=== PATIENT | female | born 1955 | race Two or more races ===

== ENCOUNTER 2017-08-30 14:15 | Inpatient (IN) | payer OTHER ==
[~2017-08-30] VITALS: Ht 167.6 cm; Wt 69.7 kg
[2017-08-30] MEDS ORDERED: MORPHINE SULFATE 4 MG/ML SYR/VIAL ONE ×2 (14:30→14:43)
[2017-08-30] MEDS ORDERED: HEPARIN SODIUM (PORCINE) 5000 UNITS/ML 1ML VIAL IV ONE (14:45)
[2017-08-30] MEDS ORDERED: MORPHINE SULFATE 8mg/ml INJ SDV IV ONE ×2 (14:45)
[2017-08-30] MEDS ORDERED: MIDAZOLAM HCL 1MG/1ML-2 ML VIAL ONE (14:50)
[2017-08-30] MEDS ORDERED: ANGIOMAX 250 MG VIAL IV ONE ×2 (14:50→15:46)
[2017-08-30] MEDS ORDERED: fentaNYL CITRATE 100 MCG/2 ML VL ONE (14:50)
[2017-08-30] MEDS ORDERED: SODIUM CHL 0.9% 50 ML ONE ×2 (14:50→15:46)
[2017-08-30] MEDS ORDERED: EPTIFIBATIDE INJ (2MG/ML) 10ML VIAL IV ONE (14:51)
[2017-08-30] MEDS ORDERED: IODIXANOL 320MG/ML 100ML BTL IV ONE ×3 (14:53→16:27)
[2017-08-30] MEDS ORDERED: LIDOCAINE HCL 2 %PF INJ 10ML AMP IJ ONE (14:53)
[2017-08-30 15:05] LABS: Basophils # (auto) 0.1 uL; Basophils % (auto) 0.6 % (0.0-2.0); Eosinophils # (auto) 0.1 uL; Eosinophils % (auto) 0.7 % (0.0-7.0); Hematocrit 41.1 % (36.0-46.0); Hemoglobin 13.6 g/dL (12.2-16.2); Lymphocytes # (auto) 3.2 uL; Lymphocytes % (auto) 29.6 % (10.0-50.0); Mean Corpuscular Hemoglobin 30.8 pg (28.0-32.0); Mean Corpuscular Hgb Conc. 33.1 g/dL (32.0-36.0); Mean Corpuscular Volume 92.9 fL (80.0-100.0); Monocytes # (auto) 0.6 uL; Neutrophils # (auto) 6.8 uL; Neutrophils % (auto) 63.1 % (37.0-80.0); Nucleated Red Blood Cells % 0.1 %; Platelet Count (auto) 259 10^3/uL (140-450); Red Blood Cells 4.43 10^6/uL (4.0-5.20); Red Cell Distribution Width 13.4 % (11.8-14.3); White Blood Cell 10.7 10^3/uL (4.4-10.8)
[2017-08-30] MEDS ORDERED: EPINEPHrine HCL 1 MG/10 ML SYRG ONE (15:15)
[2017-08-30 15:25] LABS: Alanine Aminotransferase 43 U/L (13-56); Albumin 3.4 g/dL (3.4-5.0); Alkaline Phosphatase 83 U/L (45-117); Anion Gap 11 (5-15); Aspartate Aminotransferase 22 U/L (15-37); BUN/Creatinine Ratio 17.1; Bilirubin, Total 0.5 mg/dL (0.2-1.0); Blood Urea Nitrogen 13 mg/dL (7-18); Calcium 7.9 mg/dL (8.5-10.1); Carbon Dioxide 20 mmol/L (21-32); Chloride 112 mmol/L (98-107); GFR African American 99 mL/min; GFR Non-African American 81 mL/min; Glucose 132 mg/dL (74-106); Magnesium 2.4 mg/dL (1.6-2.6); Potassium 3.1 mmol/L (3.5-5.1); Sodium 143 mmol/L (136-145)
[2017-08-30] MEDS ORDERED: CLOPIDOGREL 300 MG TAB ONE (16:33)
[2017-08-30] MEDS ORDERED: ZOLPIDEM TARTRATE 5 MG TAB PO PRN ×2 (16:45→17:15)
[2017-08-30] MEDS ORDERED: LORazepam 0.5 MG TAB PO PRN ×2 (16:45→17:15)
[2017-08-30] MEDS ORDERED: SODIUM BICARBONATE 50ML VIAL 150 ML in D5W 5% 1,000 ML IV ONE (16:45)
[2017-08-30] MEDS ORDERED: HYDROcodone-ACET 5/325MG TAB PO PRN (16:45)
[2017-08-30] MEDS ORDERED: ACETAMINOPHEN 500 MG TAB PO PRN (16:45)
[2017-08-30] MEDS ORDERED: ONDANSETRON HCL 4 MG/2 ML VIAL ONE (16:56)
[2017-08-30] MEDS ORDERED: NITROGLYCERIN 0.4 MG SL TAB SL PRN (17:15)
[2017-08-30] MEDS ORDERED: MORPHINE SULFATE 8mg/ml INJ SDV IV PRN (17:15)
[2017-08-30] MEDS: METOPROLOL SUCCINATE XL 50 MG TAB PO SCH (17:18)
[2017-08-30] MEDS: LISINOPRIL 5 MG TAB PO SCH (17:18)
[2017-08-30 18:36] LABS: Basophils # (auto) 0 uL; Basophils % (auto) 0.3 % (0.0-2.0); Eosinophils # (auto) 0 uL; Eosinophils % (auto) 0.1 % (0.0-7.0); Hematocrit 42.8 % (36.0-46.0); Hemoglobin 14.1 g/dL (12.2-16.2); Lymphocytes % (auto) 7.8 % (10.0-50.0); Mean Corpuscular Volume 90.9 fL (80.0-100.0); Monocytes # (auto) 0.4 uL; Monocytes % (auto) 3.1 % (0.0-12.0); Neutrophils # (auto) 11.5 uL; Neutrophils % (auto) 88.7 % (37.0-80.0); Platelet Count (auto) 227 10^3/uL (140-450); Red Blood Cells 4.71 10^6/uL (4.0-5.20); Red Cell Distribution Width 13.2 % (11.8-14.3); White Blood Cell 12.9 10^3/uL (4.4-10.8)
[2017-08-30 18:56] LABS: Cholesterol 282 mg/dL (< 200); HDL Cholesterol 45 mg/dL (40-59); LDL Cholesterol 210 mg/dL (< 100); Triglycerides 210 mg/dL (< 150)
[2017-08-30 19:00] VITALS: BP 122/73
[2017-08-30] MEDS: MORPHINE SULFATE 8mg/ml INJ SDV IV PRN (19:07)
[2017-08-30 20:00] VITALS: BP 127/77
[2017-08-30] MEDS: ONDANSETRON HCL 4 MG/2 ML VIAL IV PRN (20:42)
[2017-08-30 21:00] VITALS: BP 119/75
[2017-08-30 22:00] VITALS: BP 125/83
[2017-08-30] MEDS: ATORVASTATIN 20 MG TAB PO SCH (22:02)
[2017-08-30 23:00] VITALS: BP 100/65
[2017-08-30 23:30] LABS: Calcium 7.7 mg/dL (8.5-10.1); Magnesium 2.2 mg/dL (1.6-2.6)
[2017-08-30 23:32] LABS: Bilirubin, Total 0.6 mg/dL (0.2-1.0); Total Protein 6.3 g/dL (6.4-8.2)
[2017-08-31] VITALS (25 sets, daily range): BP systolic 103–136; BP diastolic 45–83
[2017-08-31] MEDS: NITROGLYCERIN 0.4 MG SL TAB SL PRN (04:35)
[2017-08-31] MEDS: MORPHINE SULFATE 8mg/ml INJ SDV IV PRN (04:40)
[2017-08-31] MEDS: ONDANSETRON HCL 4 MG/2 ML VIAL IV PRN ×2 (04:40→15:38)
[2017-08-31 05:11] LABS: INR 0.94 (0.9-1.15); Partial Thromboplastin Time 24.8 sec (22.64-33.71); Prothrombin Time 10.2 sec (9.37-12.3)
[2017-08-31] MEDS ORDERED: ANGIOMAX 250 MG VIAL IV ONE (05:11)
[2017-08-31 05:12] LABS: Albumin 3.2 g/dL (3.4-5.0); BUN/Creatinine Ratio 15.9; Bilirubin, Total 0.8 mg/dL (0.2-1.0); Calcium 8.2 mg/dL (8.5-10.1); Potassium 4.2 mmol/L (3.5-5.1); Total Protein 6.5 g/dL (6.4-8.2)
[2017-08-31] MEDS ORDERED: SODIUM CHL 0.9% 50 ML ONE (05:12)
[2017-08-31] MEDS ORDERED: fentaNYL CITRATE 100 MCG/2 ML VL ONE (05:12)
[2017-08-31] MEDS ORDERED: MIDAZOLAM HCL 1MG/1ML-2 ML VIAL ONE (05:12)
[2017-08-31] MEDS ORDERED: LIDOCAINE HCL 2 %PF INJ 10ML AMP IJ ONE (05:12)
[2017-08-31] MEDS ORDERED: IODIXANOL 320MG/ML 100ML BTL IV ONE (05:13)
[2017-08-31] MEDS ORDERED: EPTIFIBATIDE INJ (2MG/ML) 10ML VIAL IV ONE (05:13)
[2017-08-31] MEDS ORDERED: EPTIFIBATIDE DRIP(0.75MG/ML) 100 ML IV ONE ×2 (05:37→13:10)
[2017-08-31] MEDS ORDERED: ASPirin 81 mg TAB PO SCH (10:00)
[2017-08-31] MEDS ORDERED: CLOPIDOGREL BISULFATE 75 MG TAB PO SCH (10:00)
[2017-08-31] MEDS ORDERED: ASPirin-EC 81 mg tab PO SCH (10:00)
[2017-08-31] MEDS: METOPROLOL SUCCINATE XL 50 MG TAB PO SCH (10:05)
[2017-08-31] MEDS: CLOPIDOGREL BISULFATE 75 MG TAB PO SCH (10:05)
[2017-08-31] MEDS: ASPirin-EC 81 mg tab PO SCH (10:05)
[2017-08-31] MEDS: LISINOPRIL 5 MG TAB PO SCH (10:06)
[2017-08-31 15:47] LABS: Urine Bacteria NONE SEEN /hpf (None Seen); Urine Blood 2+ /uL (Negative); Urine Mucus FEW (None Seen); Urine WBC 2 /hpf (0 - 5)
[2017-08-31 15:52] LABS: Urine Specific Gravity > 1.050 (1.001-1.035)
[2017-08-31] MEDS: SODIUM CHLORIDE 0.9% 1,000 ML IV SCH (20:00)
[2017-08-31] MEDS: PANTOPRAZOLE 40 MG TAB PO SCH (22:20)
[2017-08-31] MEDS: ATORVASTATIN 20 MG TAB PO SCH (22:20)
[2017-09-01] VITALS (58 sets, daily range): BP systolic 96–140; BP diastolic 49–83
[2017-09-01 03:44] LABS: Basophils # (auto) 0.1 uL; Basophils % (auto) 0.3 % (0.0-2.0); Eosinophils # (auto) 0 uL; Hematocrit 40.8 % (36.0-46.0); Hemoglobin 13.7 g/dL (12.2-16.2); Lymphocytes # (auto) 1.1 uL; Lymphocytes % (auto) 6.9 % (10.0-50.0); Mean Corpuscular Hemoglobin 30.1 pg (28.0-32.0); Mean Corpuscular Hgb Conc. 33.6 g/dL (32.0-36.0); Mean Corpuscular Volume 89.7 fL (80.0-100.0); Monocytes # (auto) 1.4 uL; Monocytes % (auto) 8.7 % (0.0-12.0); Neutrophils # (auto) 13.8 uL; Neutrophils % (auto) 84.1 % (37.0-80.0); Platelet Count (auto) 219 10^3/uL (140-450); Red Blood Cells 4.55 10^6/uL (4.0-5.20); Red Cell Distribution Width 13.1 % (11.8-14.3); White Blood Cell 16.4 10^3/uL (4.4-10.8)
[2017-09-01 04:03] LABS: Albumin 2.5 g/dL (3.4-5.0); Calcium 7.9 mg/dL (8.5-10.1); Potassium 3.9 mmol/L (3.5-5.1)
[2017-09-01 04:05] LABS: BUN/Creatinine Ratio 15.9
[2017-09-01 04:07] LABS: Cholesterol 227 mg/dL (< 200); HDL Cholesterol 48 mg/dL (40-59); LDL Cholesterol 150 mg/dL (< 100); Triglycerides 147 mg/dL (< 150)
[2017-09-01 04:08] LABS: Bilirubin, Total 1.8 mg/dL (0.2-1.0); Total Protein 5.9 g/dL (6.4-8.2)
[2017-09-01] MEDS: SODIUM CHLORIDE 0.9% 1,000 ML IV SCH ×2 (06:27→10:29)
[2017-09-01] MEDS: CLOPIDOGREL BISULFATE 75 MG TAB PO SCH (09:57)
[2017-09-01] MEDS: LISINOPRIL 5 MG TAB PO SCH (09:57)
[2017-09-01] MEDS: ASPirin-EC 81 mg tab PO SCH (09:57)
[2017-09-01] MEDS: METOPROLOL SUCCINATE XL 50 MG TAB PO SCH (09:58)
[2017-09-01] MEDS: PANTOPRAZOLE 40 MG TAB PO SCH (09:58)
[2017-09-01] MEDS ORDERED: FUROSEMIDE 40 MG/4 ML VIAL ONE (10:20)
[2017-09-01] MEDS ORDERED: NITROGLYCERIN 0.4 MG SL TAB SL ONE (10:21)
[2017-09-01] MEDS ORDERED: LISINOPRIL 5 MG TAB ONE (10:21)
[2017-09-01] MEDS: NITROGLYCERIN 0.4 MG SL TAB SL PRN (10:28)
[2017-09-01] MEDS: FUROSEMIDE 40 MG/4 ML VIAL IV SCH (18:00)
[2017-09-02] VITALS (42 sets, daily range): BP systolic 77–109; BP diastolic 27–81
[2017-09-02] MEDS: SODIUM CHLORIDE 0.9% 1,000 ML IV SCH (01:58)
[2017-09-02 03:44] LABS: Basophils # (auto) 0.1 uL; Basophils % (auto) 0.5 % (0.0-2.0); Eosinophils # (auto) 0 uL; Eosinophils % (auto) 0.2 % (0.0-7.0); Hematocrit 37.5 % (36.0-46.0); Hemoglobin 12.4 g/dL (12.2-16.2); Lymphocytes # (auto) 1.5 uL; Lymphocytes % (auto) 12.2 % (10.0-50.0); Mean Corpuscular Hemoglobin 29.7 pg (28.0-32.0); Mean Corpuscular Hgb Conc. 33.1 g/dL (32.0-36.0); Mean Corpuscular Volume 89.8 fL (80.0-100.0); Monocytes # (auto) 1.3 uL; Monocytes % (auto) 10.3 % (0.0-12.0); Neutrophils # (auto) 9.4 uL; Neutrophils % (auto) 76.8 % (37.0-80.0); Platelet Count (auto) 181 10^3/uL (140-450); Red Blood Cells 4.18 10^6/uL (4.0-5.20); Red Cell Distribution Width 13.1 % (11.8-14.3); White Blood Cell 12.2 10^3/uL (4.4-10.8)
[2017-09-02 04:05] LABS: Albumin 2.4 g/dL (3.4-5.0); Potassium 3.5 mmol/L (3.5-5.1)
[2017-09-02 04:07] LABS: BUN/Creatinine Ratio 16.7
[2017-09-02 04:09] LABS: Bilirubin, Total 1.4 mg/dL (0.2-1.0)
[2017-09-02] MEDS: FUROSEMIDE 40 MG/4 ML VIAL IV SCH ×2 (06:00→18:20)
[2017-09-02] MEDS ORDERED: FUROSEMIDE 20 MG/2 ML VIAL IV SCH (10:00)
[2017-09-02] MEDS: PANTOPRAZOLE 40 MG TAB PO SCH ×3 (10:30→22:00)
[2017-09-02] MEDS: ASPirin-EC 81 mg tab PO SCH (10:30)
[2017-09-02] MEDS: POTASSIUM CHL 20 Meq TABLET PO SCH ×3 (10:30→22:00)
[2017-09-02] MEDS: CLOPIDOGREL BISULFATE 75 MG TAB PO SCH (10:30)
[2017-09-02] MEDS ORDERED: FUROSEMIDE 40 MG/4 ML VIAL IV ONE (10:30)
[2017-09-02] MEDS: LISINOPRIL 5 MG TAB PO SCH ×3 (10:48→22:00)
[2017-09-02] MEDS: METOPROLOL SUCCINATE XL 50 MG TAB PO SCH (13:12)
[2017-09-02] MEDS: ATORVASTATIN 20 MG TAB PO SCH ×2 (22:00)
[2017-09-03] VITALS (24 sets, daily range): BP systolic 79–132; BP diastolic 47–86
[2017-09-03] MEDS ORDERED: DIGOXIN (250MCG/ML) 2 ML AMPULE IV ONE (01:00)
[2017-09-03] MEDS ORDERED: DILTIAZEM HCL 25 MG/5 ML VIAL IV ONE (01:00)
[2017-09-03] MEDS ORDERED: DIGOXIN (250MCG/ML) 2 ML AMPULE ONE (01:04)
[2017-09-03 02:10] LABS: BUN/Creatinine Ratio 20.5; Calcium 8.2 mg/dL (8.5-10.1); Magnesium 2.2 mg/dL (1.6-2.6); Potassium 3.5 mmol/L (3.5-5.1)
[2017-09-03] MEDS: FUROSEMIDE 40 MG/4 ML VIAL IV SCH (06:00)
[2017-09-03 06:17] LABS: Potassium 3.7 mmol/L (3.5-5.1)
[2017-09-03 06:23] LABS: BUN/Creatinine Ratio 21.5; Calcium 8.3 mg/dL (8.5-10.1); Magnesium 2.3 mg/dL (1.6-2.6)
[2017-09-03] MEDS ORDERED: MAGNESIUM SULFATE 1GM/100ML 100 ML IV ONE (06:54)
[2017-09-03] MEDS: MAGNESIUM SULFATE 1GM/100ML 100 ML IV SCH ×2 (07:00→08:49)
[2017-09-03] MEDS: POTASSIUM CHL 20 Meq TABLET PO SCH ×2 (08:47→21:46)
[2017-09-03] MEDS: LISINOPRIL 5 MG TAB PO SCH (08:47)
[2017-09-03] MEDS: CLOPIDOGREL BISULFATE 75 MG TAB PO SCH (08:48)
[2017-09-03] MEDS: ASPirin-EC 81 mg tab PO SCH (08:48)
[2017-09-03] MEDS: AMIODARONE HCL 200 MG TAB PO SCH ×2 (08:48→21:45)
[2017-09-03] MEDS ORDERED: CARVEDILOL 3.125 MG TAB PO ONE (11:30)
[2017-09-03] MEDS ORDERED: MAGNESIUM OXIDE 400 MG TAB PO ONE (11:30)
[2017-09-03] MEDS: PANTOPRAZOLE 40 MG TAB PO SCH ×2 (12:36→21:46)
[2017-09-03] MEDS: CARVEDILOL 3.125 MG TAB PO SCH (21:45)
[2017-09-03] MEDS: ATORVASTATIN 20 MG TAB PO SCH (21:46)
[2017-09-03] MEDS: MAGNESIUM OXIDE 400 MG TAB PO SCH (22:01)
[2017-09-04 05:00] VITALS: BP 105/63
[2017-09-04 06:02] LABS: Basophils # (auto) 0 uL; Basophils % (auto) 0.3 % (0.0-2.0); Eosinophils # (auto) 0.1 uL; Eosinophils % (auto) 1.8 % (0.0-7.0); Hemoglobin 12.5 g/dL (12.2-16.2); Lymphocytes # (auto) 1.2 uL; Lymphocytes % (auto) 14.5 % (10.0-50.0); Mean Corpuscular Hemoglobin 30.4 pg (28.0-32.0); Mean Corpuscular Hgb Conc. 33.8 g/dL (32.0-36.0); Mean Corpuscular Volume 90.1 fL (80.0-100.0); Monocytes # (auto) 0.7 uL; Monocytes % (auto) 8.5 % (0.0-12.0); Neutrophils # (auto) 6.3 uL; Neutrophils % (auto) 74.9 % (37.0-80.0); Platelet Count (auto) 228 10^3/uL (140-450); Red Blood Cells 4.11 10^6/uL (4.0-5.20); Red Cell Distribution Width 12.7 % (11.8-14.3); White Blood Cell 8.3 10^3/uL (4.4-10.8)
[2017-09-04 06:33] LABS: Albumin 2.6 g/dL (3.4-5.0); BUN/Creatinine Ratio 16.4; Calcium 8.3 mg/dL (8.5-10.1); Potassium 4.4 mmol/L (3.5-5.1); Total Protein 6.6 g/dL (6.4-8.2)
[2017-09-04 09:00] VITALS: BP 106/72
[2017-09-04] MEDS: POTASSIUM CHL 20 Meq TABLET PO SCH ×2 (09:47→21:54)
[2017-09-04] MEDS: ASPirin-EC 81 mg tab PO SCH (09:48)
[2017-09-04] MEDS: CLOPIDOGREL BISULFATE 75 MG TAB PO SCH (09:48)
[2017-09-04] MEDS: AMIODARONE HCL 200 MG TAB PO SCH ×2 (09:49→21:53)
[2017-09-04] MEDS: CARVEDILOL 3.125 MG TAB PO SCH ×2 (09:49→21:54)
[2017-09-04] MEDS: MAGNESIUM OXIDE 400 MG TAB PO SCH ×2 (09:50→21:55)
[2017-09-04] MEDS: PANTOPRAZOLE 40 MG TAB PO SCH ×2 (09:50→21:55)
[2017-09-04 13:00] VITALS: BP 91/61
[2017-09-04 18:24] VITALS: BP 127/75
[2017-09-04] MEDS: ATORVASTATIN 20 MG TAB PO SCH (21:54)
[2017-09-04] MEDS: ENALAPRIL MALEATE 2.5 MG TAB PO SCH (21:57)
[2017-09-04 22:00] VITALS: BP 109/71
[2017-09-05 05:00] VITALS: BP 112/66
[2017-09-05 05:59] LABS: Basophils # (auto) 0.1 uL; Basophils % (auto) 1.3 % (0.0-2.0); Eosinophils # (auto) 0.2 uL; Eosinophils % (auto) 1.9 % (0.0-7.0); Hematocrit 39.7 % (36.0-46.0); Hemoglobin 13.5 g/dL (12.2-16.2); Lymphocytes # (auto) 1.3 uL; Lymphocytes % (auto) 15.1 % (10.0-50.0); Mean Corpuscular Hemoglobin 30.5 pg (28.0-32.0); Mean Corpuscular Volume 89.6 fL (80.0-100.0); Monocytes # (auto) 0.9 uL; Monocytes % (auto) 10.5 % (0.0-12.0); Neutrophils % (auto) 71.2 % (37.0-80.0); Nucleated Red Blood Cells % 0.1 %; Platelet Count (auto) 247 10^3/uL (140-450); Red Blood Cells 4.44 10^6/uL (4.0-5.20); Red Cell Distribution Width 12.7 % (11.8-14.3); White Blood Cell 8.4 10^3/uL (4.4-10.8)
[2017-09-05 06:12] LABS: Albumin 2.7 g/dL (3.4-5.0); BUN/Creatinine Ratio 13.4; Calcium 8.6 mg/dL (8.5-10.1); Potassium 4.3 mmol/L (3.5-5.1)
[2017-09-05 06:16] LABS: Bilirubin, Total 1.4 mg/dL (0.2-1.0); Total Protein 7.4 g/dL (6.4-8.2)
[2017-09-05] MEDS: POTASSIUM CHL 20 Meq TABLET PO SCH (09:37)
[2017-09-05] MEDS: ASPirin-EC 81 mg tab PO SCH (09:37)
[2017-09-05] MEDS: PANTOPRAZOLE 40 MG TAB PO SCH (09:37)
[2017-09-05] MEDS: MAGNESIUM OXIDE 400 MG TAB PO SCH (09:37)
[2017-09-05] MEDS: CLOPIDOGREL BISULFATE 75 MG TAB PO SCH (09:37)
[2017-09-05] MEDS: CARVEDILOL 3.125 MG TAB PO SCH (09:38)
[2017-09-05] MEDS: AMIODARONE HCL 200 MG TAB PO SCH (09:38)
[2017-09-05] MEDS: ENALAPRIL MALEATE 2.5 MG TAB PO SCH (09:38)
[2017-09-05 15:01] VITALS: BP 114/69
== END 2017-09-05 16:56 | disposition home or self-care (01) | DRG 246 ==
LOC: EDSEX 14:15 → EDBD 14:15 → ER 14:15 → CATH 14:16 → ICU WEST 14:17 → EDBD 14:17 → TELE-WESTW 09-03 14:20
PROVIDERS: ADMIT Internal Medicine; ATTEND Internal Medicine Pulmonary Disease
PROC: 02C03ZZ Extirpation of Matter from Coronary Artery, One Artery, Percutaneous Approach (ICD-10-PCS; principal; 2017-08-30)
PROC: 027037Z Dilation of Coronary Artery, One Artery with Four or More Drug-eluting Intraluminal Devices, Percutaneous Approach (ICD-10-PCS; 2017-08-30)
PROC: 4A023N7 Measurement of Cardiac Sampling and Pressure, Left Heart, Percutaneous Approach (ICD-10-PCS; 2017-08-30)
PROC: B2111ZZ Fluoroscopy of Multiple Coronary Arteries using Low Osmolar Contrast (ICD-10-PCS; 2017-08-30)
PROC: B2151ZZ Fluoroscopy of Left Heart using Low Osmolar Contrast (ICD-10-PCS; 2017-08-30)
PROC: 027036Z Dilation of Coronary Artery, One Artery with Three Drug-eluting Intraluminal Devices, Percutaneous Approach (ICD-10-PCS; 2017-08-31)
PROC: 4A023N7 Measurement of Cardiac Sampling and Pressure, Left Heart, Percutaneous Approach (ICD-10-PCS; 2017-08-31)
PROC: B2101ZZ Fluoroscopy of Single Coronary Artery using Low Osmolar Contrast (ICD-10-PCS; 2017-08-31)
PROC: 3E073PZ Introduction of Platelet Inhibitor into Coronary Artery, Percutaneous Approach (ICD-10-PCS; 2017-08-31)
DX: I21.3 ST elevation (STEMI) myocardial infarction of unspecified site (principal); E44.0 Moderate protein-calorie malnutrition; I95.9 Hypotension, unspecified; I11.0 Hypertensive heart disease with heart failure; I50.9 Heart failure, unspecified; T82.867A Thrombosis due to cardiac prosthetic devices, implants and grafts, initial encounter; E87.6 Hypokalemia; I25.5 Ischemic cardiomyopathy; I48.91 Unspecified atrial fibrillation; E74.39 Other disorders of intestinal carbohydrate absorption; Y83.1 Surgical operation with implant of artificial internal device as the cause of abnormal reaction of the patient, or of later complication, without mention of misadventure at the time of the procedure; E78.5 Hyperlipidemia, unspecified; I25.10 Atherosclerotic heart disease of native coronary artery without angina pectoris; Z87.891 Personal history of nicotine dependence; Z90.49 Acquired absence of other specified parts of digestive tract; Z68.24 Body mass index [BMI] 24.0-24.9, adult; Z82.49 Family history of ischemic heart disease and other diseases of the circulatory system; Y92.89 Other specified places as the place of occurrence of the external cause
CPT/HCPCS: 36415; 71045; 80048; 80053; 80061; 81001; 83036; 83735; 83880; 84443; 84484; 85025; 85610; 85730; 87081; 92928; 92929; 92933; 92975; 93005; 93306; 93458; 96361; 96374; 96375; 99152; 99153; C1874; C1887; J2250; J2270; J2405; Q9967